=== PATIENT | female | born 1930 | race Caucasian/White ===

== ENCOUNTER 2016-05-11 19:27 | Observation (INO) | payer MEDICARE, BC ==
--- NOTE | ~2016-05-11 | CR72 ---
[facility] A Service of [facility] & [facility] RADIOLOGY TEXT RESULTS PATIENT: ARMIDA HDZ LOCATION: [facility] : 29 UNIT #: [id number] AGE: [address]: Sylvia Walker MD SEX: F ORDER DR: [id number] [facility] [address] [place], [place] [address] [id number] E MR#: [id number] Acc #: [id number] NAME: ARMIDA HDZ : 1930 SEX: F STUDY DATE/TIME: 05/11/2016 23:43 UNIT: [facility] ROOM: STUDY DESCRIPTION: CR Chest Single View Portable Attending Physician: Roro Alcaraz M.D. Ordering Physician: Roor Alcaraz M.D. Primary Care Physician: Lia Driver M.D. MEDICAL IMAGING REPORT This report is preliminary unless electronic signature is present EXAM Portable chest, 05/11/2016 at 23:43 INDICATION Shortness of air with body-wide pain, worsening over the last 4 months. History of hypertension. FINDINGS AP portable chest is compared with 05/11/2016 at 1953 hours. Cardiac and mediastinal contours are stable. The lungs remain clear. No pneumothorax. IMPRESSION No active disease and no change from earlier this evening. Dictated by... Mark Anthony Flores Jr., M.D. THIS IS AN ELECTRONICALLY VERIFIED REPORT Mark Anthony Flores Jr., M.D. at 05/12/2016 6:07 AM ROJAS/isidro TD: 05/12/2016 02:54 JOB #: [id number] MEDICAL IMAGING REPORT COPY
--- NOTE | ~2016-05-11 | CT57 ---
[facility] A Service of [facility] & [facility] RADIOLOGY TEXT RESULTS PATIENT: ARMIDA HDZ LOCATION: [facility] : 29 UNIT #: [id number] AGE: [address]: Karen Elena MD SEX: F ORDER DR: [id number] [facility] [address] [place], [place] [address] [id number] I MR#: [id number] Acc #: [id number] NAME: ARMIDA HDZ. : 1930 SEX: F STUDY DATE/TIME: 05/12/2016 0758 UNIT: [facility] ROOM: 202 STUDY DESCRIPTION: CT Chest Wo Cont Attending Physician: Karen Elena M.D. Ordering Physician: Roro Alcaraz M.D. Primary Care Physician: Lia Driver M.D. MEDICAL IMAGING REPORT This report is preliminary unless electronic signature is present EXAM CT chest without contrast, 05/12/2016, 0758 hours. CLINICAL HISTORY 85 year old for evaluation of a left upper lobe lung nodule. Patient complains of diffuse body aches for 3 months. COMPARISON Chest x-ray, 05/11/2016. TECHNIQUE Helical noncontrasted CT images were obtained from the lung apices through the adrenal glands. Sagittal and coronal reconstructions were performed. Total exam DLP 138 mGy-cm. This CT exam was performed with one or more of the following radiation dose reduction techniques: automatic exposure control, adjustment of mA and/or kV according to patient size, and iterative reconstruction. FINDINGS Images through the thoracic inlet demonstrate heterogeneity in the thyroid gland without discrete nodule. Images through the chest demonstrate ascending aortic aneurysm which is fusiform measuring up to 4.1 cm. Cardiac chambers and pericardium are normal. The main pulmonary arteries are normal in caliber. There are calcified bilateral hilar lymph nodes. There are no definite noncalcified hilar nodes, although assessment is limited by the lack of intravenous contrast. There is a moderate sized hiatal hernia. Lung window images demonstrate moderate underlying centrilobular emphysema. There are biapical reticulonodular densities likely scar. On image 47, there is a 6 mm lesion with a thin perceptible wall and central STS. [facility] A Service of [facility] RADIOLOGY TEXT RESULTS PATIENT: ARMIDA HDZ LOCATION: [facility] 202-01 : 29 UNIT #: [id number] AGE: [address]: Karen Elena MD SEX: F ORDER DR: air density which could represent a cavitary nodule versus an area of focal bronchiectasis. There are similar peripheral cavitary like lesions in the right upper lobe on image 41 measuring 8 mm and image 35 measuring 6 mm. I favor that these are areas of bronchiectasis rather than cavitary nodules. There is minimal linear density at the posteromedial right lung base, likely representing focal fibrotic scar. Limited views through the upper abdomen demonstrate cholecystectomy change. There is no adrenal lesion. IMPRESSION 1. Chest CT demonstrates an element of underlying emphysematous change which is centrilobular and mild to moderate. 2. There is reticular nodular scarring at both apices. 3. In both upper lobes, there are very small, ring-like cavitary lesions measuring 6 mm in the left upper lobe and up to 8 mm in the right upper lobe. These could represent true cavitary nodules. However, a few of them suggest that there are areas of focal bronchiectasis. The findings are indeterminate. Consider further characterization with a high-resolution chest CT if warranted. 4. There are no solid or suspicious masses elsewhere. 5. Moderate hiatal hernia is present. Dictated by... Angela Snow M.D. THIS IS AN ELECTRONICALLY VERIFIED REPORT Angela Snow M.D. at 05/12/2016 2:31 PM YAZMIN/jorge TD: 05/12/2016 10:51 JOB #: [id number] MEDICAL IMAGING REPORT COPY
--- NOTE | ~2016-05-11 | CR63 ---
[facility] A Service of [facility] & [facility] RADIOLOGY TEXT RESULTS PATIENT: ARMIDA HDZ LOCATION: [facility] : 29 UNIT #: [id number] AGE: [address]: Roro Alcaraz MD SEX: F ORDER DR: [id number] [facility] [address] [place], [place] [address] [id number] E MR#: [id number] Acc #: [id number] NAME: ARMIDA HDZ. : 1930 SEX: F STUDY DATE/TIME: 05/11/2016 19:53 UNIT: [facility] ROOM: STUDY DESCRIPTION: CR Chest 2 View Attending Physician: Roro Alcaraz M.D. Ordering Physician: Roro Alcaraz M.D. Primary Care Physician: Lia Driver M.D. MEDICAL IMAGING REPORT This report is preliminary unless electronic signature is present EXAM AP and lateral chest, 05/11/2016 HISTORY Shortness of air chest pain and back pain for 3 months. FINDINGS 2 views of the chest demonstrate the cardiac size is near the upper limits of normal. Normal pulmonary vascularity. Mild hyperinflation of both lungs. Mild hypertrophic spurring mid and lower thoracic spine. Mild pleural thickening in both lung apices. IMPRESSION No acute findings. No active disease. Dictated by... Jorje Saleh M.D. THIS IS AN ELECTRONICALLY VERIFIED REPORT Jorje Saleh M.D. at 05/11/2016 11:46 PM DFL/isidro TD: 05/11/2016 23:30 JOB #: [id number] MEDICAL IMAGING REPORT COPY
--- NOTE | ~2016-05-11 | CT52 ---
[facility] A Service of [facility] & [facility] RADIOLOGY TEXT RESULTS PATIENT: ARMIDA HDZ LOCATION: [facility] : 29 UNIT #: [id number] AGE: [address]: Sylvia Walker MD SEX: F ORDER DR: [id number] [facility] [address] [place], [place] [address] [id number] E MR#: [id number] Acc #: [id number] NAME: ARMIDA HDZ : 1930 SEX: F STUDY DATE/TIME: 05/11/2016 21:25 UNIT: [facility] ROOM: STUDY DESCRIPTION: CT Cervical Spine Wo Cont Attending Physician: Roro Alcaraz M.D. Ordering Physician: Roro Alcaraz M.D. Primary Care Physician: Lia Driver M.D. MEDICAL IMAGING REPORT This report is preliminary unless electronic signature is present EXAM Cervical spine CT, 05/11 at 2125 hours INDICATIONS Posterior head and neck pain for the last 3-4 months. No trauma. TECHNIQUE Axial images were obtained through the cervical spine without contrast. Multiplanar reformats were obtained. Comparison made with 06/26/2014. This CT exam was performed with one or more of the following radiation dose reduction techniques: Automatic exposure control, adjustment of mA and/or kV according to patient size, and iterative reconstruction. FINDINGS Grade I spondylolisthesis at C2-3, C3-4, and C4-5 appears stable. Patient has an incomplete posterior osseous ring of C1, which may be due to old trauma or may be developmental. No acute cervical spine fractures are identified. There is advanced multilevel hypertrophic facet arthropathy. There is multilevel degenerative disc disease. This is most severe at C5-6 and C6-7, where there is loss of disc height with broad-based posterior disc-osteophyte complexes. There is bilateral neural foraminal narrowing at both of these levels. All these findings are relatively stable. There is an irregular opacity in the left upper lobe measuring 7 x 6 mm in size. This is not definitely present on the prior study. Follow up with outpatient chest CT recommended. IMPRESSION 1. No acute fracture. 2. Multilevel spondylolisthesis with multilevel degenerative disc disease and facet arthropathy. These findings are relatively stable from the patient's prior exam. 3. Potentially new nodule in the left upper lobe. Outpatient chest STS. [facility] A Service of [facility] RADIOLOGY TEXT RESULTS PATIENT: ARMIDA HDZ LOCATION: [facility] [id number] : 29 UNIT #: [id number] AGE: [address]: Sylvia Walker MD SEX: F ORDER DR: CT recommended for followup. Dictated by... Mark Anthony Flores Jr., M.D. THIS IS AN ELECTRONICALLY VERIFIED REPORT Mark Anthony Flores Jr., M.D. at 05/12/2016 6:06 AM ROJAS/jabier TD: 05/12/2016 00:27 JOB #: [id number] MEDICAL IMAGING REPORT COPY
--- NOTE | ~2016-05-11 | CO ---
Unit #: [id number] #: [id number] Patient: ARMIDA HDZ [id number] [address] [address] [id number] I MR#: [id number] NAME: ARMIDA HDZ. ROOM: 202 Age: 85 Sex: F Admission Date: 05/12/2016 : 1930 Attending Physician: Karen Elena M.D. Primary Care Physician: Lia Driver M.D. Consultation Date: 05/13/2016 CONSULTATION REPORT REASON FOR CONSULTATION Abnormal CT chest. HISTORY OF PRESENT ILLNESS The patient is an 85-year-old, very pleasant female, who has arthritis. Seems to do fairly well if she is on her low dose narcotics. She apparently, because of difficulty obtaining because of state regulations, has not had any for several months. She had worsening neck and shoulder pain, etc. Presented to the emergency room. She says she feels much better "now that I've had my pain pill." In the workup of her complaints, she had a CT scan of her neck which revealed a possible pulmonary nodule. A CT scan of the chest was performed and we are asked to evaluate the patient. She denies any pulmonary symptoms, no fever, night sweats, weight loss, hemoptysis, cough, sputum, wheezing or chest pain. PAST MEDICAL HISTORY Remarkable for: 1. Arthritis. 2. A variety of skin cancers including basal cell, squamous cell and melanoma. 3. History of hypertension. 4. Gastroesophageal reflux. 5. Arthritis. 6. She denies any lung disease. ALLERGIES No known medical allergies. MEDICATIONS Medications at home, according to a Med Rec sheet: 1. Estradiol. 2. Naprosyn. 3. [place]. 4. Eplerenone. 5. Effexor. 6. Potassium. SOCIAL HISTORY Never smoker, no exposures. She worked at the [employer] for some time. FAMILY HISTORY No lung disease. Unit #: [id number] #: [id number] Patient: ARMIDA HDZ REVIEW OF SYSTEMS As above and no chest pain, palpitations, abdominal pain, melena, hematochezia. No hematuria or dysuria. She has degenerative joint arthritis type arthritis but no joint effusions or rash. Further review of systems negative. PHYSICAL EXAMINATION GENERAL: Very pleasant, elderly female who is in no acute distress, sitting at the side of the bed in a chair, eating. VITAL SIGNS: She had a T-max of 102.2. She is afebrile now. Pulse 67, respiratory rate 18, blood pressure is 167/85. 5 foot 5, 180 pounds. HEENT: Pupils equal, round, reactive to light. Sclerae anicteric. Head atraumatic. Neck supple. No supraclavicular or cervical adenopathy appreciated. Mucous membranes moist. Teeth appear to be in good dentition. CHEST: Scattered rhonchi but no diagnostic adventitial sounds. No stridor. CARDIAC EXAMINATION: Distant heart tones. Regular rate and rhythm. No pathologic murmur, rub or gallop. ABDOMEN: Soft, nontender. No hepatomegaly or rebound. EXTREMITIES: No clubbing, cyanosis or edema. No calf tenderness. SKIN: Warm and dry without rash or diaphoresis. NEUROLOGICAL: Grossly intact with no focal muscle or sensory deficits. DIAGNOSTIC STUDIES LABORATORY: BUN is 19, creatinine is 1.1, estimated GFR 55. INR was normal. CBC normal except for hemoglobin of 11.6. No eosinophilia. Influenzae screen negative. Urinalysis - no hematuria. Blood cultures performed and are pending. IMAGING: Chest x-ray unremarkable. CT scan - there is some mild emphysema. Rare bronchiectasis and a small area, particularly right upper lobe, that appears to be a small cavity. Unfortunately, the one in the left upper lobe is obscured by radiology markings. IMPRESSION 1. Abnormal CT scan of unknown clinical significance. 2. Possible emphysema, asymptomatic. 3. Arthritis. 4. A variety of skin cancers. 5. Hypertension, etc. PLAN Fungal serologies will be checked. After that, it is okay to go home. We will follow up in the office and, ultimately, arrange a CT scan of the chest without contrast in three to four months. I have asked her to call the office if she has any pulmonary complaints. Thank you very much for allowing me to participate in the care of Ms. Hdz. Unit #: [id number] #: [id number] Patient: ARMIDA HDZ Dictated by... Rex Weaver M.D. Wojciech TD: 05/14/2016 09:04 JOB #: [id number] CONSULTATION REPORT X Rex Weaver MD CONSULTATION REPORT
--- NOTE | ~2016-05-11 | CT71 ---
[facility] A Service of [facility] & [facility] RADIOLOGY TEXT RESULTS PATIENT: ARMIDA HDZ LOCATION: [address] : 29 UNIT #: [id number] AGE: [address]: Karen Elena MD SEX: F ORDER DR: [id number] [facility] [address] [facility]. [place], [place] [address] [id number] E MR#: [id number] Acc #: [id number] NAME: ARMIDA HDZ : 1930 SEX: F STUDY DATE/TIME: 05/11/2016 21:15 UNIT: [facility] ROOM: STUDY DESCRIPTION: CT Head Wo Contrast Attending Physician: Roro Alcaraz M.D. Ordering Physician: Roro Alcaraz M.D. Primary Care Physician: Lia Driver M.D. MEDICAL IMAGING REPORT This report is preliminary unless electronic signature is present EXAM CT brain without contrast HISTORY Head and neck pain for 4 months. No injury. TECHNIQUE This CT exam was performed with one or more of the following radiation dose reduction techniques: Automatic exposure control, adjustment of mA and/or kV according to patient size, and iterative reconstruction. FINDINGS CT brain without contrast demonstrates no intracranial hemorrhage, mass or edema. No midline shift or ventricular dilatation. No extraaxial fluid collection. Mild chronic ischemic changes in the deep white matter bilaterally. IMPRESSION No acute findings. Dictated by... Jorje Saleh M.D. THIS IS AN ELECTRONICALLY VERIFIED REPORT Jorje Saleh M.D. at 05/12/2016 12:20 PM DFL/psc TD: 05/12/2016 00:10 JOB #: [id number] MEDICAL IMAGING REPORT COPY
--- NOTE | ~2016-05-11 | EKG ---
PATIENT: ARMIDA HDZ UNIT #: [id number] Ventricular Rate: 76 BPM Atrial Rate: 76 BPM P-R Interval: 170 ms QRS Duration: 144 ms Q-T Interval: 402 ms QTC Calculation(Bezet): 452 ms P [place]: 70 degrees Calculated R [place]: -21 degrees Calculated T [place]: 108 degrees Diagnosis Line: Normal sinus rhythm Diagnosis Line: Left bundle branch block Diagnosis Line: Abnormal ECG Diagnosis Line: No previous ECGs available Diagnosis Line: Confirmed by BRAD ROSADO MD ([id number]) on Diagnosis Line: 05/12/2016 10:49:38 PM INTERPRETING MD: HUSEYIN
--- NOTE | ~2016-05-11 | HP ---
Unit #: [id number] #: [id number] Patient: ARMIDA HDZ [id number] [address] [place], [place] [address] [id number] I MR#: [id number] NAME: ARMIDA HDZ. ROOM: 46817 Age: 85 Sex: F Admission Date: 05/12/2016 : 1930 Attending Physician: Karen Elena M.D. Primary Care Physician: Lia Driver M.D. HISTORY AND PHYSICAL CHIEF COMPLAINT Increasing immobilization secondary to progressive joint and muscle pain with stiffness. HISTORY OF PRESENT ILLNESS This pleasant 85-year-old female with hypertension, DJD, is admitted for generalized pain. The patient states that she was well until January when she began to experienced generalized pain. Initially, the pain started in her neck, shoulders and arms and now has progressed into her hips and legs. The pain affects the joints as well as muscles, is associated with stiffness, lasts throughout the day. The patient is becoming weaker and has noted some intermittent chills. The patient denies any other symptoms of infection besides chills. The patient does have DJD and is status post bilateral total hip replacements and right knee replacement. The patient notes increasing pain and some buckling of her left leg. She was treated with Tylenol by primary care physician, possibly some Oxycodone, which the patient states did not help. She presents to this emergency department where she does have a low grade temperature of 100.2. PAST MEDICAL HISTORY 1. Hypertension. 2. Melanoma removed x2. 3. GERD. 4. DJD. 5. Bilateral total hip replacement. 6. Right knee replacement. 7. Total abdominal hysterectomy. 8. Cholecystectomy. SOCIAL HISTORY The patient lives alone and is normally quite active and able to care for herself until recently. She is essentially a lifelong nonsmoker, does not drink alcohol. FAMILY HISTORY Peripheral neuropathy. ALLERGIES No known drug allergies. HOME MEDICATIONS 1. Diuretic. 2. Potassium. Unit #: [id number] #: [id number] Patient: ARMIDA HDZ 3. Tylenol. REVIEW OF SYSTEMS Notable for increasing pain as dictated above, hypertension, melanoma, GERD, DJD, above-mentioned surgeries. All other systems reviewed and are negative. PHYSICAL EXAMINATION GENERAL APPEARANCE: A pleasant, young-appearing, 85-year-old, moderately obese female who is uncomfortable with any sort of movement. VITAL SIGNS: Temperature 98.8 but was as high as 100.2. Pulse 80. Respirations 15. Blood pressure was as high as 186/70 but currently is 140/57. O2 saturation 98% on room air. HEENT: Eyes: PERRLA. Extraocular muscles are intact status post bilateral cataract extraction. Pharynx is benign. NECK: Supple without adenopathy or thyromegaly. CHEST: Clear. CARDIAC: Normal S1, S2 with a soft systolic murmur best heard at the upper sternal borders. ABDOMEN: Bowel sounds are present. No hepatosplenomegaly, tenderness or masses. EXTREMITIES: Without edema. Pedal pulses are present. No joint effusions that I can see or redness. The patient has good range of motion her joints. NEUROLOGIC: The patient is awake, alert, oriented. Cranial nerves are intact. Equal strength throughout. DIAGNOSTIC STUDIES LABORATORY: Hematocrit 38.4, WBC count 11, normal MCV and platelet count. INR 1.1. SMA-12 is normal except for an alkaline phosphatase of 110. Urinalysis: Unremarkable. Flu serology is negative. IMAGING: Chest x-ray: No acute disease. CT scan of the C-spine shows multilevel DJD with spondylolisthesis. Left upper lobe nodule noted. Head CT is negative. CARDIOVASCULAR: EKG: Sinus rhythm, rate 76, left bundle branch block noted. ASSESSMENT 1. Progressive joint and muscle pains along with stiffness. Rule out polymyalgia rheumatica versus other etiology. 2. DJD. 3. Hypertension. 4. GERD. 5. Removal of melanomas many years ago. 6. Left upper extremity nodule noted. PLAN 1. Check STAT sedimentation rate and blood cultures. 2. Check CPK, rheumatoid factor, EMILY, B12 and TSH. 3. If elevated sed rate, would consider empiric low dose prednisone for PMR. 4. CT scan of the chest. Dictated by Unit #: [id number] #: [id number] Patient: ARMIDA HDZ M.D. AML/bd TD: 05/12/2016 08:00 JOB #: [id number] HISTORY AND PHYSICAL X Sylvia Walker MD HISTORY AND PHYSICAL
--- NOTE | ~2016-05-11 | DS ---
Unit #: [id number] #: [id number] Patient: ARMIDA HDZ [id number] [address] [address] [id number] I MR#: [id number] NAME: ARMIDA HDZ. ROOM: 202 Age: 85 Sex: F Admission Date: 05/12/2016 : 1930 Discharge Date: 05/13/2016 Attending Physician: Karen Elena M.D. Primary Care Physician: Lia Driver M.D. DISCHARGE SUMMARY DISCHARGE DIAGNOSES 1. Generalized progressive joint and muscle pain along with stiffness, most likely polymyalgia rheumatica. 2. Degenerative joint disease. 3. Chronic pain. 4. Hypertension. 5. Gastroesophageal reflux disease. 6. History of melanomas removed many years ago. 7. Left lung cavitary nodule, needs outpatient followup. CONSULTATION Dr. Weaver. PROCEDURES None. DIAGNOSTIC STUDIES LABORATORY: Blood cultures negative. Sodium 137, potassium 3.9, creatinine 1, alkaline phosphatase 109, and albumin 3.1. WBC 6.6, hemoglobin 11.5, and platelets 288,000. C-reactive protein 23.8. Influenza A and B negative. IMAGING: CT scan of the chest without contrast shows reticular nodular scarring at both apices. In both upper lobes, very small, ring-like cavitary lesions measuring 6 mm in the left upper lobe and 8 mm in the right upper lobe present. CT scan of the head with no acute abnormality. CT of the cervical spine with no acute fracture. Multilevel spondylolisthesis with multilevel degenerative disc disease present. Left upper lobe new nodule present. ALLERGIES None. DISCHARGE MEDICATIONS 1. Estradiol 0.5 mg p.o. daily. 2. Eplerenone 25 mg 2 tablets which total 50 mg p.o. daily. 3. Naproxen 375 p.o. b.i.d. 4. [place] 7.5 q.8 p.r.n. pain. 5. Potassium 10 mEq p.o. daily. HOSPITAL COURSE An 85-year-old admitted because of generalized joint and muscle weakness, stiffness, and pain. Unit #: [id number] #: [id number] Patient: ARMIDA HDZ Polymyalgia rheumatica, currently pain better. She was seen by Physical Therapy. She ambulated fine. They recommended home with home health, continue with Lortab for pain, and follow with applications engineering manager of her choice or her primary care physician for followup. Bilateral lung cavitary lesions. Patient was seen by Dr. Weaver. He ordered fungal serologies, and patient will follow with Dr. Weaver in four week's time. Repeat CT to be done and follow with him for followup. Hypertension, well controlled. DISPOSITION Patient will be discharged home. FOLLOWUP 1. With family physician in one week's time. 2. With Dr. Weaver in four week's time. 3. With applications engineering manager of choice in four week's time. 1. Dictated by... Luiz Andrea TD: 05/13/2016 20:11 JOB #: [id number] DISCHARGE SUMMARY X Karen Elena MD X DISCHARGE SUMMARY
[~2016-05-11 19:27] MED LIST: CELEBREX PO; DARVOCET-N 1001 TAB PO; EFFEXOR XR PO; FLEXERIL10 MG PO; HORMONE PILL; HTN MED; LORTAB 7.5-5001 TAB PO; PHENERGAN PO; PRAVACHOL PO; PROTONIX PO; REGLAN PO; WATER PILL
[2016-05-11 19:54] LABS: BASOPHIL% 0.2 % (0-2.5); EOSINOPHIL# 0.3 X10e3 (0-0.7); EOSINOPHIL% 2.5 % (0.0-7.0); HEMATOCRIT 38.4 % (35.0-45.0); HEMOGLOBIN 12.8 gm/dL (12.0-16.0); LYMPHOCYTE# 0.6 X10e3 (1.0-3.5); LYMPHOCYTE% 5.3 % (17.0-45.0); MEAN CELL VOLUME 90.1 FL (83-96); MEAN CORPUSCULAR HGB CONC 33.3 g/dL (30-36); MEAN PLATELET VOLUME 6.9 FL (6.5-11.5); MONOCYTE# 0.6 X10e3 (0-1.0); MONOCYTE% 5.7 % (3.0-12.0); NEUTROPHIL# 9.4 X10e3 (1.5-7.1); NEUTROPHIL% 86.3 % (40-75); PLATELET COUNT 333 X10e3 (140-420); RED BLOOD COUNT 4.26 X10e (3.90-5.30); RED CELL DISTRIBUTION WIDTH 13.8 % (11.0-15.5); WHITE BLOOD COUNT 10.9 X10e3 (4.0-10.5)
[2016-05-11 19:55] LABS: DIFF IND NO
[2016-05-11 20:07] LABS: INR 1.1; PROTHROMBIN TIME (PATIENT) 11.2 SECONDS (9.6-11.5)
[2016-05-11 20:14] LABS: URINE SOURCE CLEAN CATCH
[2016-05-11 20:25] LABS: ALBUMIN SERUM 3.7 g/dL (3.5-5.0); ALKALINE PHOSPHATASE 110 U/L (32-92); ALT (SGPT) 18 U/L (10-40); AST (SGOT) 27 U/L (10-42); BILIRUBIN, DIRECT 0.1 mg/dL (0.0-0.2); BILIRUBIN,INDIRECT 0.4 mg/dL (0.0-0.9); BILIRUBIN,TOTAL 0.5 mg/dL (0.2-2.0); BLOOD UREA NITROGEN 19 mg/dL (9-23); BUN/CREATININE RATIO 21.11; CALCIUM SERUM 9.5 mg/dL (8.4-10.2); CARBON DIOXIDE 24 mmol/L (22-31); CHLORIDE 101 mmol/L (100-111); CREATININE SERUM 0.9 mg/dL (0.6-1.4); GLOM FILT RATE Estimated ABOVE60 mL/min (>60); GLUCOSE FASTING 108 mg/dL (70-110); PROTEIN TOTAL SERUM 7.5 g/dL (6.0-8.3); SODIUM 135 mmol/L (135-145)
[2016-05-11 20:26] LABS: URINE APPEARANCE CLEAR; URINE BILIRUBIN NEG (NEG); URINE BLOOD NEG (NEG); URINE COLOR YELLOW; URINE GLUCOSE NEG (NEG); URINE KETONE NEG (NEG); URINE LEUKOCYTE ESTERASE NEG (NEG); URINE NITRATE NEG (NEG); URINE PROTEIN NEG (NEG); URINE SPECIFIC GRAVITY 1.007 (1.003-1.035); URINE UROBILINOGEN 0.2 MG/DL (NEG)
[2016-05-11 20:31] LABS: CULTURE INDICATED? NO
[2016-05-12 01:01] LABS: INFLUENZA A NEG (NEG); INFLUENZA B NEG (NEG)
[2016-05-12 04:26] LABS: BASOPHIL% 0.5 % (0-2.5); EOSINOPHIL# 0.2 X10e3 (0-0.7); EOSINOPHIL% 2.2 % (0.0-7.0); HEMATOCRIT 36.1 % (35.0-45.0); LYMPHOCYTE# 0.9 X10e3 (1.0-3.5); LYMPHOCYTE% 9.6 % (17.0-45.0); MEAN CELL VOLUME 90.1 FL (83-96); MEAN CORPUSCULAR HEMOGLOBIN 29.9 PG (28-34); MEAN CORPUSCULAR HGB CONC 33.1 g/dL (30-36); MEAN PLATELET VOLUME 6.8 FL (6.5-11.5); MONOCYTE# 0.6 X10e3 (0-1.0); MONOCYTE% 6.8 % (3.0-12.0); NEUTROPHIL# 7.3 X10e3 (1.5-7.1); NEUTROPHIL% 80.9 % (40-75); PLATELET COUNT 291 X10e3 (140-420); RED CELL DISTRIBUTION WIDTH 13.7 % (11.0-15.5)
[2016-05-12 04:37] LABS: DIFF IND NO
[2016-05-12 04:48] LABS: CPK (CREATINE PHOSPHOKINASE) 27 IU/L (26-140)
[2016-05-12 06:54] LABS: FOLATE (FOLIC ACID) >24.0 ng/mL (>5.8)
[2016-05-12] MEDS ORDERED: NAPROXEN375 MG PO (09:24)
[2016-05-12] MEDS ORDERED: EPLERENONE50 MG PO (09:25)
[2016-05-12] MEDS ORDERED: HYDROCODON-ACE1 EAC9 PO (09:25)
[2016-05-12] MEDS ORDERED: EFFEXOR75 M3 PO (09:26)
[2016-05-12] MEDS ORDERED: POTASSIUM CHLO10 MEQ PO (09:27)
[2016-05-12] MEDS ORDERED: ESTRADIOL0.5 MG PO (09:30)
[2016-05-13 05:25] LABS: HEMATOCRIT 35.7 % (35.0-45.0); HEMOGLOBIN 11.6 gm/dL (12.0-16.0); MEAN CELL VOLUME 90.8 FL (83-96); MEAN CORPUSCULAR HEMOGLOBIN 29.6 PG (28-34); MEAN CORPUSCULAR HGB CONC 32.6 g/dL (30-36); MEAN PLATELET VOLUME 7.1 FL (6.5-11.5); RED BLOOD COUNT 3.93 X10e (3.90-5.30); RED CELL DISTRIBUTION WIDTH 13.9 % (11.0-15.5); WHITE BLOOD COUNT 6.6 X10e3 (4.0-10.5)
[2016-05-13 06:13] LABS: ALBUMIN SERUM 3.1 g/dL (3.5-5.0); BILIRUBIN,TOTAL 0.4 mg/dL (0.2-2.0); CALCIUM SERUM 9.1 mg/dL (8.4-10.2); GLOM FILT RATE Estimated 55.9 mL/min (>60); POTASSIUM 3.9 mmol/L (3.5-5.1); PROTEIN TOTAL SERUM 6.7 g/dL (6.0-8.3)
[2016-05-13] MEDS ORDERED: ESTRACE0.5 MG PO (17:16)
[2016-05-14 22:19] LABS: ANA SCREEN Negative (Negative)
[2016-05-17 15:45] LABS: ASPERGILLUS FLAVUS Negative (Negative); ASPERGILLUS FUMIGATUS Negative (Negative); ASPERGILLUS NIGER Negative (Negative); BLASTOMYCES ANTIBODY Negative (Negative); COCCIDIODES ANTIBODY Negative (Negative); CRYPTOCOCCAL AB <1:2 (()); CRYPTOCOCCAL AG SCREEN SOURCE Serum (()); CRYPTOCOCCAL SCREEN Not Detected (Not Detected); HISTOPLASMA AB Negative (Negative)
== END 2016-05-13 18:52 | disposition home or self-care (01) ==
LOC: CED 19:27 → CEDOF 05-12 03:05 → C2A 05-12 10:10
PROVIDERS: Emergency Medicine; Internal Medicine
DX: M79.1 Myalgia (principal); M25.50 Pain in unspecified joint; M25.60 Stiffness of unspecified joint, not elsewhere classified; M19.90 Unspecified osteoarthritis, unspecified site; I10 Essential (primary) hypertension; K21.9 Gastro-esophageal reflux disease without esophagitis; R22.32 Localized swelling, mass and lump, left upper limb; Z85.820 Personal history of malignant melanoma of skin; J43.2 Centrilobular emphysema; J98.4 Other disorders of lung; K44.9 Diaphragmatic hernia without obstruction or gangrene; M43.12 Spondylolisthesis, cervical region; M50.322 Other cervical disc degeneration at C5-C6 level; M46.92 Unspecified inflammatory spondylopathy, cervical region
CPT/HCPCS: 36415; 70450; 71010; 71020; 71250; 72125; 80048; 80053; 80076; 81003; 82550; 82607; 82746; 84443; 85025; 85027; 85610; 85652; 86038; 86039; 86140; 86430; 86606; 86612; 86631; 86698; 87040; 87804; 93005; 96372; 96374; 97116; 97161; 97166; 97530; 99285; G0378; G8978-GP; G8979-GP; G8987-GO; G8988-GO; J1650; J1885